=== PATIENT | male | born 1970 | race Caucasian/White ===

== ENCOUNTER 2017-03-20 19:42 | Emergency (ER) | payer MEDICARE, OTHER ==
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
[2017-03-20 21:17] LABS: ABSOLUTE BASOPHILS # (AUTO) 0.1 10^3/uL (0.0-0.2); ABSOLUTE EOSINOPHILS # (AUTO) 0.1 10^3/uL (0.0-0.6); ABSOLUTE LYMPHOCYTES (AUTO) 3.5 10^3/uL (0.5-4.7); ABSOLUTE MONOCYTES (AUTO) 0.9 10^3/uL (0.1-1.4); BASOPHILS % (AUTO) 0.8 % (0-2); EOSINOPHILS % (AUTO) 1.4 % (0-6); HEMATOCRIT 42.8 % (37.9-51.0); HEMOGLOBIN 14.7 g/dL (13.5-17.0); HGB HCT DIFFERENCE 1.3; LYMPHOCYTES % (AUTO) 32.9 % (13-45); MEAN CORPUSCULAR HEMOGLOBIN 30.2 pg (27.0-33.4); MEAN CORPUSCULAR HGB CONC 34.3 g/dL (32.0-36.0); MEAN CORPUSCULAR VOLUME 88 fl (80-97); MONOCYTES % (AUTO) 8.2 % (3-13); RED BLOOD COUNT 4.85 10^6/uL (4.35-5.55); RED CELL DISTRIBUTION WIDTH 13.9 % (11.5-14.0); SEGMENTED NEUTROPHILS % (AUTO) 56.7 % (42-78); WHITE BLOOD COUNT 10.5 10^3/uL (4.0-10.5)
[2017-03-20 21:41] LABS: ALANINE AMINOTRANSFERASE 41 U/L (21-72); ALBUMIN 4.1 g/dL (3.5-5.0); ALKALINE PHOSPHATASE 142 U/L (38-126); ANION GAP 9 (5-19); ASPARTATE AMINO TRANSFERASE 31 U/L (17-59); BILIRUBIN,DIRECT 0.3 mg/dL (0.0-0.4); BILIRUBIN,TOTAL 0.5 mg/dL (0.2-1.3); BLOOD UREA NITROGEN 13 mg/dL (7-20); CALCIUM 9.4 mg/dL (8.4-10.2); CARBON DIOXIDE 30 mmol/L (22-30); CHLORIDE 102 mmol/L (98-107); CREATININE RESULT 0.91 mg/dL (0.52-1.25); GLUCOSE 110 mg/dL (75-110); POTASSIUM 3.6 mmol/L (3.6-5.0); SODIUM 141.4 mmol/L (137-145); TOTAL PROTEIN 6.5 g/dL (6.3-8.2)
[2017-03-20 21:43] LABS: ALCOHOL < 10 mg/dL (NONE DETECTED)
[2017-03-20] MEDS ORDERED: LEVETIRACETAM 500 MG TABLET PO ONE (21:45)
[2017-03-20 21:46] LABS: APPEARANCE,URINE SLIGHTLY-CLOUDY; BILIRUBIN,URINE NEGATIVE (NEGATIVE); GLUCOSE, URINE NEGATIVE (NEGATIVE); KETONES,URINE NEGATIVE (NEGATIVE); LEUKOCYTE ESTERASE,URINE NEGATIVE (NEGATIVE); NITRITE,URINE NEGATIVE (NEGATIVE); PROTEIN,URINE NEGATIVE (NEGATIVE); URINE SPECIFIC GRAVITY 1.032
[2017-03-20] MEDS ORDERED: GABAPENTIN 400 MG CAPSULE PO ONE (21:47)
[2017-03-20] MEDS: GABAPENTIN 400 MG CAPSULE PO SCH (21:55)
[2017-03-20 22:03] LABS: URINE BARBITURATES SCREEN NEGATIVE; URINE METHADONE SCREEN NEGATIVE; URINE OPIATES LOW NEGATIVE; URINE PHENCYCLIDINE SCREEN NEGATIVE
--- NOTE | 2017-03-20 22:20 | RADIOLOGY REPORT (SQ) ---
EXAM DESCRIPTION: CT HEAD WITHOUT COMPLETED DATE/TIME: 03/20/2017 10:00 pm REASON FOR STUDY: Astrocytoma, several months of anger issues COMPARISON: None. TECHNIQUE: Axial images acquired through the brain without intravenous contrast. Images reviewed wi th bone, brain and subdural windows. Images stored on PACS. All CT scanners at this facility use dose modulation, iterative reconstruction, and/or weight based d osing when appropriate to reduce radiation dose to as low as reasonably achievable (ALARA). [facility]: Dose Right [facility]: CareDose [facility]: Dose Right [facility]: Teradose 4D [facility]: Smart Reesio RADIATION DOSE: Up-to-date CT equipment and radiation dose reduction techniques were employed. CTDIv ol: 64.6 mGy. DLP: 1163 mGy-cm. mGy. LIMITATIONS: None. FINDINGS: VENTRICLES: Normal size and contour. CEREBRUM: No masses. No hemorrhage. No midline shift. No evidence for acute infarction. Postsurgic al changes are present with mild encephalomalacia in the right parietal lobe. . CEREBELLUM: No masses. No hemorrhage. No alteration of density. No evidence for acute infarction. EXTRAAXIAL SPACES: No fluid collections. No masses. ORBITS AND GLOBE: No intra- or extraconal masses. Normal contour of globe without masses. CALVARIUM: No fracture. PARANASAL SINUSES: No fluid or mucosal thickening. SOFT TISSUES: No mass or hematoma. OTHER: No other significant finding. IMPRESSION: No intracranial hemorrhage or mass effect.Postsurgical changes are present with mild enc ephalomalacia in the right parietal lobe. COMMENT: Quality ID # [id number]: Final reports with documentation of one or more dose reduction techniques (e.g., Automated exposure control, adjustment of the mA and/or kV according to patient size, use of iterative reconstruction technique) TECHNICAL DOCUMENTATION: JOB ID: [id number]- All Rights Reserved
[2017-03-21] MEDS: GABAPENTIN 400 MG CAPSULE PO SCH ×3 (06:36→20:16)
--- NOTE | 2017-03-21 09:33 | ER Document Report ---
Doctor's Note Notes: 03/21/17 09:33 pt is resting comfortably this am. no complaints or concerns. awaiting disposition.
[2017-03-21] MEDS: ASPIRIN 325 MG TABLET PO SCH (10:21)
[2017-03-21] MEDS: LEVETIRACETAM 500 MG TABLET PO SCH ×2 (10:21→17:40)
[2017-03-21] MEDS: VENLAFAXINE HCL 37.5 MG CAP.SR.24H PO SCH (10:49)
--- NOTE | 2017-03-21 11:48 | EKG REPORT ---
SEVERITY:- BORDERLINE ECG - SINUS RHYTHM BORDERLINE INFERIOR Q WAVES : Confirmed by: Hai Herrera 21-Mar-2017 11:46:21
[2017-03-21] MEDS ORDERED: BENZTROPINE MESYLATE 1 MG TABLET PO SCH (15:00)
[2017-03-21] MEDS: OLANZAPINE 5 MG TABLET PO SCH (17:39)
[2017-03-22] MEDS: GABAPENTIN 400 MG CAPSULE PO SCH (05:48)
--- NOTE | 2017-03-22 09:37 | ER Document Report ---
Doctor's Note Notes: 03/22/17 09:36 The patient is resting comfortably and without complaints. He states he does feel better and denies any suicidal or homicidal ideations. [facility] I discussed case with the psychiatry team and they have recommended some medicines for discharge. I have discussed this with him and he is agreeable to taking the medicines. I have advised him to return to the emergency room if he has any worsening thoughts of wanting to hurt himself or others.
[2017-03-22] MEDS: VENLAFAXINE HCL 37.5 MG CAP.SR.24H PO SCH (09:58)
[2017-03-22] MEDS: OLANZAPINE 5 MG TABLET PO SCH (09:59)
[2017-03-22] MEDS: LEVETIRACETAM 500 MG TABLET PO SCH (09:59)
[2017-03-22] MEDS: ASPIRIN 325 MG TABLET PO SCH (09:59)
[2017-03-22 12:23] VITALS: BP 114/79
== END 2017-03-22 12:23 | disposition home or self-care (01) ==
LOC: ER 19:42
DX: F39 Unspecified mood [affective] disorder (principal); R45.6 Violent behavior; R45.4 Irritability and anger; G93.89 Other specified disorders of brain; F17.210 Nicotine dependence, cigarettes, uncomplicated; Z85.841 Personal history of malignant neoplasm of brain; Z91.5 Personal history of self-harm; Z98.890 Other specified postprocedural states; Z92.3 Personal history of irradiation; Z92.21 Personal history of antineoplastic chemotherapy; Z79.899 Other long term (current) drug therapy; Z79.82 Long term (current) use of aspirin
CPT/HCPCS: 93005; 99285; 36415; 80307 ×4; 85025; 80053; 81001; 70450; 93010; A9270 ×13; J3490